=== PATIENT | female | born 1950 | race Caucasian/White ===

== ENCOUNTER → 2017-02-05 | Outpatient (REF) | LOC: ZLAB.WCH 18:02 | DX: Z01.89 Encounter for other specified special examinations (principal) ==

== ENCOUNTER → 2017-05-06 | Outpatient (REF) | LOC: ZLAB.WCH 20:04 | DX: Z01.89 Encounter for other specified special examinations (principal) ==

== ENCOUNTER → 2017-10-21 | Outpatient (REF) | LOC: ZLAB.WCH 18:24 | DX: Z01.89 Encounter for other specified special examinations (principal) ==

== ENCOUNTER → 2018-02-10 | Outpatient (REF) | LOC: ZLAB.WCH 17:47 | DX: Z53.8 Procedure and treatment not carried out for other reasons (principal) ==

== ENCOUNTER → 2018-02-16 | Outpatient (REF) | LOC: ZLAB.WCH 17:57 | DX: Z01.89 Encounter for other specified special examinations (principal) ==

== ENCOUNTER → 2018-07-28 | Outpatient (REF) | LOC: ZLAB.WCH 16:30 | DX: Z01.89 Encounter for other specified special examinations (principal) ==

== ENCOUNTER → 2018-11-22 | Outpatient (REF) | LOC: ZLAB.WCH 16:15 | DX: Z01.89 Encounter for other specified special examinations (principal) ==

== ENCOUNTER → 2018-11-24 | Outpatient (REF) | LOC: ZLAB.WCH 19:42 | DX: Z01.89 Encounter for other specified special examinations (principal) ==

== ENCOUNTER 2019-11-20 11:03 | Observation (INO) | payer MEDICAID ==
[~2019-11-20] VITALS: Ht 160 cm; Wt 104.7 kg
[2019-11-20] VITALS (470 sets, daily range): BP systolic 100–131; BP diastolic 53–66; PULSE 95–103; TEMP 97.4–98; O2SAT 91–100
--- NOTE | 2019-11-20 11:00 | NUR ---
PT ARRIVED BY EMS FROM [facility]. PT TRANSFERED TO BED. PT IS AXOX3. PT PLACED ON OUR MONITOR SHOWING SR. VSS. PT HAS A IV TO RIGHT WRIST RUNNING LR AT 250ML/HR. PT HAS AN INDWELLING BEGUM IN PLACE. PT WAS INCONTINENT OF STOOL. PT CLEANED UP AND ORIENTED TO ROOM AND FLOOR. PT'S SISTER BETINA MICHAEL.
[2019-11-20] MEDS ORDERED: AMITRIPTYLINE H25 M1 PO (11:28)
[2019-11-20] MEDS ORDERED: CALCIUM CITRATE1 TA1 PO (11:36)
[2019-11-20] MEDS ORDERED: NATURE'S BLEND500 M1 PO (11:37)
[2019-11-20] MEDS ORDERED: CLARISPRAY9.9 ML NS (11:38)
[2019-11-20] MEDS ORDERED: NOVOLOG MIX 70/33 ML SQ ×2 (11:40→11:41)
[2019-11-20] MEDS ORDERED: ZESTRIL30 MG PO (11:42)
[2019-11-20] MEDS ORDERED: LANTUS100 U/ML SQ (11:42)
[2019-11-20] MEDS ORDERED: LOPRESSOR 225 MG/TAB PO (11:43)
[2019-11-20] MEDS ORDERED: PATANOL OPHTHALM5 ML OD ×2 (11:44→11:46)
[2019-11-20] MEDS ORDERED: GLUCOPHAGE500 MG/TAB PO (11:47)
[2019-11-20] MEDS ORDERED: PRILOSEC 20MG20 MG PO (11:47)
[2019-11-20] MEDS ORDERED: ZOCOR 20MG20 MG PO (11:47)
[2019-11-20] MEDS ORDERED: ULTRAM 50MG TAB50 MG PO (11:48)
[2019-11-20] MEDS ORDERED: DEMADEX5 MG PO (11:49)
--- NOTE | 2019-11-20 12:43 | NUR ---
CALLED LUCINA SNEED TO CLARIFY IVF. WILL START NS AT 150ML/HR. UNABLE TO GET PERIPHERAL BC. OK'D TO DRAW SECOND SET OF PICC.
--- NOTE | 2019-11-20 14:47 | NUR ---
PT DOWN TO CT
--- NOTE | 2019-11-20 15:08 | NUR ---
PT BACK FROM CT.
--- NOTE | 2019-11-20 19:55 | NUR ---
Patient assessment completed and charted at this time, please see documentation for details. Patient resting in bed, no complaints, family just leaving bedside for the evening. All questions and concerns addressed, will continue to monitor.
[2019-11-21] VITALS (766 sets, daily range): BP systolic 123–168; BP diastolic 50–70; PULSE 92–107; TEMP 97.5–98; O2SAT 74–100
[2019-11-21 06:09] LABS: HEMATOCRIT 39.2 % (37.0-47.0); MEAN CELL VOLUME 83 fl (80.0-100.0); MEAN CORPUSCULAR HEMOGLOBIN 27 pg (27.0-31.0); MEAN CORPUSCULAR HGB CONC 33 g/dl (33.0-37.0); MEAN PLATELET VOLUME 10.4 fl (7.4-10.4); PLATELET COUNT 241 K/mm3 (130-400); RED BLOOD COUNT 4.74 M/mm3 (4.10-5.30); REDCELL DISTRIBUTION WIDTH-CV 14.6 % (11.5-14.5)
[2019-11-21 06:57] LABS: CALCIUM 8.6 mg/dL (8.4-10.2); CREATININE, serum 1.14 (0.52-1.25); MAGNESIUM 2.3 mg/dL (1.6-2.3); POTASSIUM 3.1 mmol/L (3.4-5.0)
--- NOTE | 2019-11-21 07:10 | NUR ---
Bedside report recieved from NEVIN Noriega. Patient participates. MIVF rate verified and running to uncomplicated TAE PICC. Johnson with positive UO noted. Care assumed.
[2019-11-21 09:39] LABS: BAND 11 % (0-10); EOSINOPHIL 27 % (0-4); LYMPHOCYTE 20 % (20.0-51.0); NEUTROPHILS 39 % (42.0-75.2)
[2019-11-21 09:40] LABS: PLATELET ESTIMATE NORMAL (NORMAL)
--- NOTE | 2019-11-21 10:12 | NUR ---
Dr. Johnson rounds at this time. Orders as entered CPOE.
--- NOTE | 2019-11-21 11:50 | NUR ---
Initial visit; Patient uncomfortable, Controller Repairer And Tester offered spiritual care and wished her well.
--- NOTE | 2019-11-21 12:40 | NUR ---
Rectal tube inserted following MD order for use secondary to patient frequent incontinence of liquid stool in moderate to large amount. Immediate return of liquid stool noted to dependent tubing. Will continue to monitor.
[2019-11-22] VITALS (262 sets, daily range): BP systolic 134–161; BP diastolic 61–77; PULSE 74–100; TEMP 97.9–98.8; O2SAT 92–100
[2019-11-22 05:26] LABS: BASO # 0.1 (0.0-0.2); BASO % 0.4 % (0.0-2.0); EOS # 6.4 (0.0-0.7); GRAN # 7.7 (1.4-6.5); GRAN % 38.5 % (42.2-75.2); HEMATOCRIT 38.6 % (37.0-47.0); HEMOGLOBIN 12.6 g/dl (12.5-16.0); LYMPH # 4.2 (1.2-3.4); LYMPH % 21.2 % (20.0-51.0); MEAN CELL VOLUME 84 fl (80.0-100.0); MEAN CORPUSCULAR HEMOGLOBIN 27 pg (27.0-31.0); MEAN CORPUSCULAR HGB CONC 33 g/dl (33.0-37.0); MEAN PLATELET VOLUME 10.1 fl (7.4-10.4); MONO # 1.3 (0.1-0.6); MONO % 6.5 % (1.7-9.3); PLATELET COUNT 214 K/mm3 (130-400); RED BLOOD COUNT 4.62 M/mm3 (4.10-5.30)
[2019-11-22 05:41] LABS: CALCIUM 8.8 mg/dL (8.4-10.2); CREATININE, serum 0.74 (0.52-1.25); MAGNESIUM 1.8 mg/dL (1.6-2.3); POTASSIUM 3.1 mmol/L (3.4-5.0)
--- NOTE | 2019-11-22 07:10 | NUR ---
Received report from NEVIN Brown.
--- NOTE | 2019-11-22 10:51 | NUR ---
RN TEACHER student spoke with the patient's sister, Alaina García to complete initial intake. The patient lives alone in [place]. The patient had a brain injury when she was [age]. Alaina is the patient's software qa system specialist. Alaina lives 10 mintues away and provides assistance with all ADLs and IADLs. The patient has a walker, handrails in the shower, and a lift chair. The patient's PCP is Dr. Cooper of [place] and receives medications from [place] [facility]. The patient does not have advanced directives in the EMR. The patient is not , has no childen; Alaina is her only sibling. financial services consultant will continue to follow to ensure a safe discharge.
--- NOTE | 2019-11-22 18:32 | NUR ---
Rectal tube leaking liquid stool around insertion site. 50mL of water aspirated out of the 45mL max fluid baloon. Pericare provided Black line of tube in correct position, 25mL of water inserted into baloon with good seal assessed on compression of [id number]. Pt tolerated well.
--- NOTE | 2019-11-22 19:10 | NUR ---
Received report from NEVIN Brown.
[2019-11-23] VITALS (7 sets, daily range): BP systolic 123–1666; BP diastolic 59–98; PULSE 78–90; TEMP 98–99
--- NOTE | 2019-11-23 04:58 | NUR ---
Report called to NEVIN Melendrez.
--- NOTE | 2019-11-23 05:20 | NUR ---
Patient transferred to medical room 319. Contact made with the receiving nurseParvin. Care transferred at this time.
--- NOTE | 2019-11-23 05:30 | NUR ---
PT ARRIVED TO FLOOR, PLEASANT DEMEANOR, AOX4, ABLE TO CONFIRM HOME MEDICATIONS. HR REGULAR, BREATH SOUNDS CLEAR UPPERS, DIM LOWERS. AUDIBLE BSX4. BRUISING TO RH & LFA. PICC TAE. SCD'S REMOVED TO REVEAL LLE REDNESS AND SCALING. EXCORIATION TO GROIN AND BUTTOCKS, RECTAL TUBE AND BEGUM IN PLACE. YELLOW CLEAR URINE OUTPUT. BED IN LOWEST POSITION, ORIENTED TO CALL LIGHT, PHONE, ALL WITHIN REACH ALONG WITH WATER, BS TAKEN, PUMP CLEARED FOR I&O'S, DAILY WEIGHT TAKEN. PT DENIES ANY PAIN OR DISCOMFORT, PULSES 1+ IN ALL EXTREMITIES. NO OTHER NEEDS AT THIS TIME.
[2019-11-23 06:56] LABS: HEMOGLOBIN 11.6 g/dl (12.5-16.0); MEAN CELL VOLUME 83 fl (80.0-100.0); MEAN CORPUSCULAR HEMOGLOBIN 27 pg (27.0-31.0); MEAN CORPUSCULAR HGB CONC 32 g/dl (33.0-37.0); MEAN PLATELET VOLUME 10.4 fl (7.4-10.4); PLATELET COUNT 178 K/mm3 (130-400); RED BLOOD COUNT 4.33 M/mm3 (4.10-5.30)
[2019-11-23 07:11] LABS: CALCIUM 8.4 mg/dL (8.4-10.2); CREATININE, serum 0.65 (0.52-1.25); POTASSIUM 3.3 mmol/L (3.4-5.0)
[2019-11-23 08:49] LABS: BAND 2 % (0-10); EOSINOPHIL 29 % (0-4); LYMPHOCYTE 17 % (20.0-51.0); NEUTROPHILS 49 % (42.0-75.2); PLATELET ESTIMATE NORMAL (NORMAL)
--- NOTE | 2019-11-23 11:50 | NUR ---
Assessment complete. Patient sitting up in bed. Rectal tube had leaked. Patient was cleaned and cared for. Johnson is patent draining clear yellow urine. Pt was complaining of abdominal pain rated at 5/10, prn pain medication was provided. PICC line site CD&I, IV fluids infusing @75 ml/hr at this time. No further needs were expressed at this time. Call light in place.
--- NOTE | 2019-11-23 16:25 | NUR ---
SW attempted to contact the patient's sister, Alaina to discuss home health options, left message.
--- NOTE | 2019-11-23 18:26 | NUR ---
Pt had a good day. Rectal tube did come outwhile working with PT/OT. Large amount of loose stool after it fell out. Physician was notified. We waited to see if it was still necessary by assessing the flow after the initial drainage. It slowed and patient has done very well with a brief since. She can sometimes notify staff when she needs to go but other times she cannot. She recieved PRN pain medication this morning but has not requested it since. No further needs were expressed at this time. Call light is in place.
--- NOTE | 2019-11-23 19:41 | NUR ---
PT INCONTINENT OF STOOL, PABLO CARE AND BEGUM CARE PROVIDED, CREAM APPLIED TO REDDENED GROIN AREA, PT COMPLAINING OF PAIN 6/10 IN L SIDE OF ABD. MEDICATIONS ADMINISTERED, PT PLEASANT, VERY GIGGLY AFTER EVERY SENTENCE, PT BED IN LOWEST POSITION, CALL LIGHT BY BED, TABLE AND WATER AND GATORADE AT BEDSIDE. PT REQUESTED PAIN MEDS BUT IT WAS TOO EARLY. NO OTHER NEEDS AT THIS TIME.
--- NOTE | 2019-11-23 22:29 | NUR ---
PT'S MORPHINE ADMINISTERED, WILL REASESS, LONG ACTING INSULIN ADMINISTERED. PT HAD ANOTHER INCONTINENT STOOL, PABLO AND BEGUM CARE PROVIDED.
[2019-11-24 04:18] VITALS: BP 152/72; PULSE 85; TEMP 99.2
--- NOTE | 2019-11-24 04:31 | NUR ---
PT INCONTINENT OF BOWEL, PABLO AND BEGUM CARE PROVIDED, SHEETS CHANGED, GOWN CHANGED. PT REQUESTED PAIN MEDICATION, MEDICATION ADMINISTERED. NO OTHER NEEDS AT THIS TIME.
--- NOTE | 2019-11-24 05:02 | NUR ---
PT HAD MULTIPLE ACCOUNTS OF INCONTINENT STOOL, REQUESTING PAIN MEDS EVERY 3HRS WHEN AVAILABLE. OVERALL VERY PLEASANT. DRINKS, CALL LIGHT AND TABLE WITHIN REACH. PT STATES NO OTHER NEEDS AT THIS TIME.
[2019-11-24 06:17] LABS: HEMOGLOBIN 11.5 g/dl (12.5-16.0); MEAN CELL VOLUME 84 fl (80.0-100.0); MEAN CORPUSCULAR HEMOGLOBIN 27 pg (27.0-31.0); MEAN CORPUSCULAR HGB CONC 32 g/dl (33.0-37.0); MEAN PLATELET VOLUME 10.5 fl (7.4-10.4); PLATELET COUNT 154 K/mm3 (130-400); RED BLOOD COUNT 4.25 M/mm3 (4.10-5.30)
[2019-11-24 06:30] LABS: CALCIUM 8.3 mg/dL (8.4-10.2); CREATININE, serum 0.55 (0.52-1.25); POTASSIUM 3.5 mmol/L (3.4-5.0)
[2019-11-24 06:39] LABS: HEMATOCRIT 35.5 % (37.0-47.0)
--- NOTE | 2019-11-24 06:44 | NUR ---
LAB CALLED WITH CRITICAL WBC COUNT OF 21.2, UP FROM 20.3 YESTERDAY. LAB VALUE PASSED ON TO DAY SHIFT NURSE. NO FEVERS ALL NIGHT.
[2019-11-24 07:03] LABS: EOSINOPHIL 32 % (0-4); LYMPHOCYTE 30 % (20.0-51.0); NEUTROPHILS 35 % (42.0-75.2)
[2019-11-24 07:05] LABS: PLATELET ESTIMATE NORMAL (NORMAL)
[2019-11-24 08:13] VITALS: BP 155/77; PULSE 82; TEMP 99
--- NOTE | 2019-11-24 09:59 | NUR ---
Patient awake in bed, eating breakfast at time of assessment. She complains of pain 4/10 on L side of abdomen; 1 mg morphine administered for this. She is breathing easily and heart sounds are normal. All bowel sounds are audible and there is tenderness with palpation. Her abdomen is obese and firm with palpated. She has been incontinent of stool; brief changed, francisco care provided and cream applied. Stool was loose and greenish/brown in color. Will continue to monitor.
[2019-11-24 12:30] VITALS: BP 179/71; PULSE 79; TEMP 99.1
--- NOTE | 2019-11-24 13:21 | NUR ---
This day patient up to bedside commode via assist of walker and gaitbelt with 2 assist. Patient have incontinent episodes of BM throughout this morning shift. Patient rates pain at 4 and would like it to be at 3, pain of lump or pressure to left side. Patient alert and oriented and cooperative with cares. Had bed bath and full bed sheet change this am. Gave report to Sumi ROONEY and primary Amira ROONEY.
[2019-11-24 16:25] VITALS: BP 139/63; PULSE 75; TEMP 98.5
--- NOTE | 2019-11-24 16:29 | NUR ---
Ventilator Specialist spoke with patient's sister, Alaina who advised she has not made a decision on Home Health yet but will notify SW when choice has been made. SW was informed by Amira ROONEY that patient will likely have colonoscopy tomorrow and requested patient's sister be notified. SW contacted Alaina again to provide update. Alaina advised again she still has not made a choice about home health. SW to continue to follow.
--- NOTE | 2019-11-24 18:28 | NUR ---
Patient has had uneventful shift. She got up to the chair with PT and has complained of minimal pain. She started a bowel prep this evening for colonoscopy scheduled tomorrow morning. She has been incontinent of multiple loose stools today and has redness (diaper rash) in folds and francisco area. Desenex powder applied this afternoon. No further concerns voiced at this time.
[2019-11-24 19:22] VITALS: BP 161/82; PULSE 89; TEMP 98.1
--- NOTE | 2019-11-24 23:01 | NUR ---
RECIEVED REPORT FROM DAY SHIFT. PATIENT WAS SITTING UP IN HER CHAIR DRINKING HER GO-LIGHTY. PATIENT WAS THEN MOVED TO THE BED WITH THE HELP OF THE PROJECT CONTROLS SPECIALIST TO GET HER CHANGED. HER BUTTOCKS IS VERY REDDENED WITH A PETCHIAL RASH TO HER BACK OF HER RIGHT THIGH. PATIENT BLOOD SUGAR LEVEL WAS 266 SO RECIEVED 8 UNITS OF NOVOLOG AND HER LEVIMIR. PATIENT WAS NOT REPORTING ANY PAIN AT THIS TIME. PUT HER SCD'S ON AND WAS OK WITH WEARING THEM. PATIENT NO OTHER COMPLAINTS AT THIS TIME.
[2019-11-25] VITALS (9 sets, daily range): BP systolic 149–197; BP diastolic 59–74; PULSE 70–79; TEMP 97.8–98.6
--- NOTE | 2019-11-25 05:21 | NUR ---
PATIENT HAS BEEN UP FOR PRETTY MUCH THE WHOLE NIGHT DRINKING THE GO-LYTLY. PATIENT HAS BEEN INCONTINENT OF SEVERAL BOWL MOVEMENTS THROUGHOUT THE NIGHT. HER BOTTOM IS VERY EXCORIATED BUT HAVE PUT DESITIN ON THE AREA WELL THE POWDER. PATIENT IS SCHEDULED FOR 0900 COLONOSCOPY. PATIENT IS UP WITH ONE PERSON BUT TURNS QUITE WELL IN BED BUT IS BETTER FOR TWO INDIVIDUALS ARE PRESENT. PATIENT HAS A BEGUM IN PLACE. PATIENT STATED THAT SHE HAD A SORE IN MOUTH BUT THIS NURSE JUST SAW A PINHEAD SIZE RED SPOT BUT OTHER THAN THAT, NO OTHER ISSUES NOTED. PATIENT HAS CALL LIGHT WITHIN REACH AND DENIES ANY OTHER NEEDS AT THIS TIME
--- NOTE | 2019-11-25 07:03 | NUR ---
report given to NEVIN Winters
[2019-11-25 07:09] LABS: BASO # 0.1 (0.0-0.2); BASO % 0.4 % (0.0-2.0); EOS # 5.3 (0.0-0.7); EOS % 30.8 % (0-4.0); GRAN # 7.3 (1.4-6.5); GRAN % 42.5 % (42.2-75.2); HEMOGLOBIN 11.7 g/dl (12.5-16.0); LYMPH # 3.3 (1.2-3.4); LYMPH % 18.9 % (20.0-51.0); MEAN CELL VOLUME 84 fl (80.0-100.0); MEAN CORPUSCULAR HEMOGLOBIN 27 pg (27.0-31.0); MEAN CORPUSCULAR HGB CONC 33 g/dl (33.0-37.0); MEAN PLATELET VOLUME 10.9 fl (7.4-10.4); MONO # 1.1 (0.1-0.6); MONO % 6.4 % (1.7-9.3); PLATELET COUNT 154 K/mm3 (130-400); RED BLOOD COUNT 4.27 M/mm3 (4.10-5.30); REDCELL DISTRIBUTION WIDTH-CV 15.2 % (11.5-14.5)
[2019-11-25 07:17] LABS: HEMATOCRIT 35.7 % (37.0-47.0)
[2019-11-25 07:41] LABS: CALCIUM 8.5 mg/dL (8.4-10.2); CREATININE, serum 0.55 (0.52-1.25); POTASSIUM 3.3 mmol/L (3.4-5.0)
--- NOTE | 2019-11-25 08:20 | NUR ---
Pt awake and alert this morning, bowel prep for procedure reported complete, no C/O pain this morning, shift assessments complete, left Pt call light in reach, bed in lowest position.
--- NOTE | 2019-11-25 18:22 | NUR ---
Pt rested in the room this afternoon, returned from procedure this morning and has no C/O pain since returning, Pt has not had diarrhea today, VS have remained stable.
--- NOTE | 2019-11-25 20:10 | NUR ---
HYDROPULPER CALLED THIS NURSE TO SAY THE BLOOD PRESSURE WAS ELEVATED. UPON RECHECKING IT MYSELF IT WAS 197/67 AND THEN THE SECOND TIME IT WAS 185/64. SEE eMAR FOR MEDICATION GIVEN
--- NOTE | 2019-11-25 21:50 | NUR ---
RECIEVED REPORT FROM DAY SHIFT. PATIENT IS RESTING IN HER BED WITH FLUIDS RUNNING. SHE WAS CHANGED BY THE CNAS. PATIENT HAS HER SCDs ON A ALL HER NECESITIES ON HER BEDSIDE TABLE. DENIES ANY OTHER NEEDS AT THIS TIME
[2019-11-26 00:42] VITALS: BP 150/61; PULSE 66; TEMP 98.3
--- NOTE | 2019-11-26 01:17 | NUR ---
PATIENT IS RESTING IN BED. SHE WAS JUST CHANGED AND REPOSITIONED IN BED. DENIES ANY OTHER NEEDS AT THIS TIME
[2019-11-26 04:14] VITALS: BP 157/94; PULSE 73; TEMP 98.1
--- NOTE | 2019-11-26 05:44 | NUR ---
PATIENT HAS BEEN RESTING THROUGHOUT THE EVENING. SHE IS ABLE TO USE HER CALL LIGHT WHEN SHE NEEDS SOMETHING. PATIENT HAS FLUIDS RUNNING IN HER IV. BEGUM IS STILL IN PLACE FOR ACCURATE I AND O's. CATHETER CARE WAS PROVIDED. PATIENT IS INCONTINENT AT TIMES BUT WILL TELL YOU WHEN SHE NEEDS CLEANED. WILL REPORT OFF TO DAY SHIFT UPON THEIR ARRIVAL ABOUT THE PATIENT
--- NOTE | 2019-11-26 06:45 | NUR ---
REPORT GIVEN TO NEVIN CROWELL
[2019-11-26 07:38] VITALS: BP 166/69; PULSE 71; TEMP 98
[2019-11-26 07:38] LABS: BASO # 0.1 (0.0-0.2); BASO % 0.4 % (0.0-2.0); EOS # 3.8 (0.0-0.7); EOS % 32.8 % (0-4.0); GRAN # 4.6 (1.4-6.5); GRAN % 39.5 % (42.2-75.2); HEMOGLOBIN 10.8 g/dl (12.5-16.0); LYMPH # 2.3 (1.2-3.4); LYMPH % 19.6 % (20.0-51.0); MEAN CELL VOLUME 84 fl (80.0-100.0); MEAN CORPUSCULAR HEMOGLOBIN 27 pg (27.0-31.0); MEAN CORPUSCULAR HGB CONC 32 g/dl (33.0-37.0); MEAN PLATELET VOLUME 10.4 fl (7.4-10.4); MONO # 0.8 (0.1-0.6); MONO % 7.1 % (1.7-9.3); PLATELET COUNT 143 K/mm3 (130-400); REDCELL DISTRIBUTION WIDTH-CV 15.1 % (11.5-14.5)
[2019-11-26 07:43] LABS: CALCIUM 7.8 mg/dL (8.4-10.2); CREATININE, serum 0.49 (0.52-1.25); MAGNESIUM 1.7 mg/dL (1.6-2.3); POTASSIUM 3.3 mmol/L (3.4-5.0)
[2019-11-26 07:48] LABS: HEMATOCRIT 33.6 % (37.0-47.0)
--- NOTE | 2019-11-26 08:50 | NUR ---
Assessment complete. Pt sitting up in bed with breakfast. Alert and oriented. No pain or discomfort at this time. PICC line CD&I, IV fluids infusing at 75 ml/hr. States she feels pretty good today. Assisted her with brushing her teeth and dentures. LLE redness and tenderness noted, pt states that is normal for her. No further needs were expressed at this time. Call light in reach.
[2019-11-26 12:21] VITALS: BP 161/66; PULSE 68; TEMP 98.2
[2019-11-26 15:38] VITALS: BP 174/71; PULSE 66; TEMP 98.7
--- NOTE | 2019-11-26 17:58 | NUR ---
Pt had a good day. She had 3 BMs, thick liquid, dark brown. Was inconitenent but continued to have BM once moved to the [facility]. Patient is very stable walking with walker and stands stable at stand still. Largest problem is standing. Her BP at 1600 was a systolic if 174. I rechecked before administering hydralazine new reading was systolic 195/70. PRN hydralazine administered. 15 minute recheck showed BP at 147/80. Will inform health data analyst of episode of high BP. No other complaints. No pain or discomfort at all through the day. Call light is in reach.
[2019-11-26 20:08] VITALS: BP 194/71; PULSE 71; TEMP 97.9
--- NOTE | 2019-11-26 20:30 | NUR ---
TECH REPORTED HIGH BLOOD PRESSURE, BP RECHECKED IN 30 MIN SINCE HYDRALAZINE COULD NOT BE GIVEN DUE TO PREVIOUS ADMINISTRATION. ONCE RECHECKED PT WAS WITHIN NORMAL RANGE FOR THAT PT AND DID NOT NEED PHARMACOLOGICAL INTERVENTIONS.
--- NOTE | 2019-11-26 23:25 | NUR ---
PT IN BED, DENYING PAIN TO ABDOMEN, ASKED IF SHE WOULD LIKE TO BE WOKEN UP TO SEE IF SHE WANTED PAIN MEDS IN THE NIGHT AND SHE SAID SHE DID. PT PLEASANT, ORIENTED X4, BED IN LOWEST POSITION, LOOSE BM BUT PABLO CARE PROVIDED BY TECH. TABLE WITH WATER AND GATORADE AND BOOK AND CHAPSTICK AND CALL LIGHT AT BEDSIDE. MEDICATIONS GIVEN, BS CHECKED, INSULIN ADMINSTERED, NO OTHER NEEDS AT THIS TIME.
[2019-11-27] VITALS (8 sets, daily range): BP systolic 153–177; BP diastolic 51–83; PULSE 70–78; TEMP 97.6–98.4
--- NOTE | 2019-11-27 02:46 | NUR ---
PT PABLO CARE GIVEN FOR INCONTINENT STOOL. CATH CARE PROVIDED, POWDER AND CREAM APPLIED, SHEETS CHANGED.
--- NOTE | 2019-11-27 04:45 | NUR ---
BP RECHECK WAS 156/65
--- NOTE | 2019-11-27 05:02 | NUR ---
pt bp check due soon, overall uneventful shift except for hypertensive episodes, pt slept peacefully, 2 incontinent stools total, pt denying pain or discomfort. pt table with personal belongings, water, and call light at bedside. no other needs at this time.
[2019-11-27 06:20] LABS: HEMOGLOBIN 10.7 g/dl (12.5-16.0); MEAN CELL VOLUME 84 fl (80.0-100.0); MEAN CORPUSCULAR HEMOGLOBIN 27 pg (27.0-31.0); MEAN CORPUSCULAR HGB CONC 32 g/dl (33.0-37.0); MEAN PLATELET VOLUME 10.6 fl (7.4-10.4); PLATELET COUNT 139 K/mm3 (130-400); RED BLOOD COUNT 3.99 M/mm3 (4.10-5.30); REDCELL DISTRIBUTION WIDTH-CV 15.2 % (11.5-14.5)
[2019-11-27 06:27] LABS: ALANINE AMINOTRANSFERASE 23 U/L (9-52); ALBUMIN 2.5 gm/dL (3.5-5.0); ALKALINE PHOSPHATASE 96 U/L (50-136); ANION GAP 6 mmol/L (7-16); AST,SGOT 18 U/L (15-37); BILIRUBIN,TOTAL 0.3 mg/dL (0.0-1.0); CALCIUM 7.9 mg/dL (8.4-10.2); CARBON DIOXIDE 27 mmol/L (22-30); CHLORIDE 109 mmol/L (98-107); CREATININE, serum 0.48 (0.52-1.25); GLUCOSE 115 mg/dL (74-106); POTASSIUM 3.5 mmol/L (3.4-5.0); SODIUM 142 mmol/L (137-145)
[2019-11-27 06:29] LABS: BLOOD UREA NITROGEN < 2 mg/dL (7-17)
[2019-11-27 06:33] LABS: HEMATOCRIT 33.6 % (37.0-47.0)
[2019-11-27 07:23] LABS: BAND 5 % (0-10); BASOPHIL 1 % (0-2); EOSINOPHIL 28 % (0-4); LYMPHOCYTE 26 % (20.0-51.0); METAMYELOCYTE 1 % (0-0); NEUTROPHILS 32 % (42.0-75.2); PLATELET ESTIMATE NORMAL (NORMAL)
[2019-11-27] MEDS ORDERED: Desenex/Lotrimin AF TP (09:03)
[2019-11-27] MEDS ORDERED: BENTYL 10MG10 MG/CAP PO (09:03)
[2019-11-27] MEDS ORDERED: PROBIOTIC ACID1 EAC3 PO (09:03)
--- NOTE | 2019-11-27 11:16 | NUR ---
Catheter was removed at 1115. Patient tolerated it very well. Allyn care was provided before. Total UO was 375.
--- NOTE | 2019-11-27 11:34 | NUR ---
Pt appears upset with the decision that her sister has made about going to a rehab facility short term. She stated that she just wants to go home and be in her own chair. Patient was getting teary eyed and her face was red. Nurse was notified about what was said. Vitals signs are stable. Blood pressure a little elevated (168/69) nurse was notified. Patient is resting in bed watching tv and waiting for lunch to arrive.
--- NOTE | 2019-11-27 11:53 | NUR ---
Follow-up visit; Patient thanked Substance Abuse Rn for looking in on her again and wishing her well and a good recovery.
--- NOTE | 2019-11-27 16:38 | NUR ---
Excavating Machine Operator spoke with Hospitalist who advised patient ready for discharge today but that patient's sister Alaina would like to explore post acute rehab placements as she does not feel patient can safely return home at this time. RANI spoke with Alaina who advised first preference is [facility] and second preference is [facility]. RANI contacted NITZA EsparzaCM at [facility] and also faxed a referral to Cyndi at [facility]. SW met with patient who expressed she wants to go home but understands why her sister feels she needs post acute rehab. SW was notified by Cyndi that they cannot accept referral. RANI spoke with [facility] who advised there was no bed available today but they still are screening referral. RANI contacted Alaina and advised with patient only having Medicaid, more referrals would need to be sent. Alaina verbalized understanding and is in agreeance to have referrals sent to local nursing homes and [facility] unit. RANI contacted [place] with [facility] who will screen referral. RANI faxed referrals and contacted [facility], [facility], [facility], [facility], and [facility]. [facility] does not have bed availability at this time. [facility] advised they cannot accept referral. RANI will continue to follow up with [facility], [facility], [facility], and [facility]. RANI contacted Alaina to provide update on referrals. RANI also provided update to Hospitalist.
--- NOTE | 2019-11-27 17:42 | NUR ---
PICC line dressing changed by student nurse with instructor supervision. Sterile technique used. Central line dressing tray without biodisk included so none placed. Anticipate removal with discharge tomorrow.
--- NOTE | 2019-11-27 22:17 | NUR ---
PT IN ROOM, PLEASANT, BED IN LOWEST POSTION, CALL LIGHT WITHIN REACH, PERSONAL BELONGINGS ON SIDE TABLE WITHIN REACH, WATER CUPS FILLED. ASSESSMENT WAS UNREMARKABLE, BP REPORTEDLY HIGH EARLIER SO HYDRALAZINE ADMINISTERED, UPON REASSESSMENT LATER IT DROPPED TO 154 SYSTOLIC. PT DENIES PAIN OR DISCOMFORT BUT STATES SHE WANTS TO BE WOKEN UP DURING THE NIGHT TO ASSESS FOR PHARMACOLOGICAL PAIN MANAGEMENT. NO OTHER NEEDS AT THIS TIME.
[2019-11-28 00:59] VITALS: BP 159/62; PULSE 77; TEMP 97.8
[2019-11-28 04:36] VITALS: BP 173/58; PULSE 76; TEMP 98
[2019-11-28 05:38] VITALS: BP 143/49
[2019-11-28 06:55] LABS: CALCIUM 8.3 mg/dL (8.4-10.2); CREATININE, serum 0.51 (0.52-1.25); POTASSIUM 3.5 mmol/L (3.4-5.0)
[2019-11-28 06:59] LABS: BASO # 0.1 (0.0-0.2); BASO % 0.7 % (0.0-2.0); EOS # 2.6 (0.0-0.7); EOS % 29.2 % (0-4.0); GRAN # 2.5 (1.4-6.5); GRAN % 27.3 % (42.2-75.2); HEMOGLOBIN 10.9 g/dl (12.5-16.0); MEAN CELL VOLUME 85 fl (80.0-100.0); MEAN CORPUSCULAR HEMOGLOBIN 27 pg (27.0-31.0); MEAN CORPUSCULAR HGB CONC 32 g/dl (33.0-37.0); MEAN PLATELET VOLUME 10.6 fl (7.4-10.4); MONO # 0.9 (0.1-0.6); MONO % 9.4 % (1.7-9.3); PLATELET COUNT 168 K/mm3 (130-400); RED BLOOD COUNT 4.01 M/mm3 (4.10-5.30); REDCELL DISTRIBUTION WIDTH-CV 15.5 % (11.5-14.5)
[2019-11-28 07:10] LABS: HEMATOCRIT 34.1 % (37.0-47.0)
--- NOTE | 2019-11-28 07:42 | NUR ---
PT HAD 2 HYPERTENSIVE EPISODES DURING THE NIGHT, HYDRALAZINE ADMINISTERED ON BOTH OCCASIONS, ON BOTH OCCASIONS BP WENT DOWN TO ACCEPTABLE LEVEL. PT RECEIVED NORCO ONCE THROUGHOUT NIGHT FOR ABD PAIN. PT SLEPT MOST OF NIGHT, BED IN LOWEST POSITION, CALL LIGHT, TABLE, WATER, PERSONAL BELONGNINGS AT BEDSIDE. NO OTHER NEEDS AT THIS TIME.
--- NOTE | 2019-11-28 08:00 | NUR ---
Patient is awake and alert in her room. Assisted from restroom to recliner, gait is steady. Did provide pericare and applied barrier cream. New brief providied. Denies pain. Call light and personal items are within reach.
[2019-11-28 08:28] VITALS: BP 141/55; PULSE 80; TEMP 98.4
--- NOTE | 2019-11-28 09:56 | NUR ---
Professor Of Marketing contacted Melissa at [facility] and was advised they can not accept referral. SW spoke with [facility] who will send their SW, Gabby to screen patient. SW left a message for Selina at [facility]. SW contacted patient's sister Alaina to provide update. RANI advised Alaina that if [facility] and [facility] decline the referral, the discharge plan will be to go home with home health. Alaina verbalized understanding but reports she really hopes patient can get into [facility].
[2019-11-28] MEDS ORDERED: NOVOLOG 100U100 U/M1 SQ (12:31)
[2019-11-28 12:49] VITALS: BP 145/61; PULSE 77; TEMP 98.5
--- NOTE | 2019-11-28 15:26 | NUR ---
Spanish Medical Interpreter followed up with [facility] after their screen and they are able to accept patient today and provide transportation. RANI contacted Selina at [facility] who advised they would also accept today and that they could do an evening admission as patient's sister cannot pickup driver patient until 1800. RANI notified [facility] that first preference accepted and thanked them for screening referral. RANI contacted Alaina who advised she was relieved that [facility] can take patient. Alaina will pickup driver patient at 1800 and transport her to [facility]. RANI provided update to RNEdel and Hospitalist. RANI provided report number for accepting physician Richard Lyle (ph#[phone]) to Hospitalist and provided RN report number to Edel. RANI faxed discharge orders to [facility]. No additional needs at this time.
[2019-11-28 16:49] VITALS: BP 150/77; PULSE 76; TEMP 97.8
--- NOTE | 2019-11-28 19:20 | NUR ---
Patient discharged to [facility], did travel via private vehicle with family. Report called to Nette.
== END 2019-11-28 18:30 | disposition swing bed (61) ==
LOC: IMCU 11:03 → MEDICAL 11:03 → IMCU 11:03 → MEDICAL 11:03 → IMCU 11:04 → MEDICAL 11-23 05:49 → IMCU 11-23 05:49 → MEDICAL 11-23 05:49 → IMCU 11-23 14:53 → MEDICAL 11-23 14:53
PROVIDERS: Nurse Practitioner Family; Physician Assistant; Student in an Organized Health Care Education/Training Program; ADMIT Internal Medicine
DX: A41.9 Sepsis, unspecified organism (principal); N17.9 Acute kidney failure, unspecified; E87.1 Hypo-osmolality and hyponatremia; E87.2 Acidosis; R65.20 Severe sepsis without septic shock; K21.9 Gastro-esophageal reflux disease without esophagitis; E83.42 Hypomagnesemia; E87.6 Hypokalemia; Z66 Do not resuscitate; E11.9 Type 2 diabetes mellitus without complications; E66.9 Obesity, unspecified; G47.33 Obstructive sleep apnea (adult) (pediatric); D72.1 Eosinophilia; I10 Essential (primary) hypertension; I95.9 Hypotension, unspecified; E78.5 Hyperlipidemia, unspecified; S30.814A Abrasion of vagina and vulva, initial encounter; Z90.710 Acquired absence of both cervix and uterus; Z85.42 Personal history of malignant neoplasm of other parts of uterus; Z90.89 Acquired absence of other organs; Z79.4 Long term (current) use of insulin; Z79.899 Other long term (current) drug therapy
CPT/HCPCS: 99223-AI; 99232-AI; 99233-AI; 99239; A4216; C1751; J0360; J0696; J1650; J1815; J2270; J2550; J2704; J3475; J7030